=== PATIENT | female | born 1965 | race Caucasian/White ===

== ENCOUNTER 2019-08-15 17:26 | Emergency (ER) | payer OTHER ==
[2019-08-15 17:51] VITALS: BP 132/81; PULSE 81; TEMP 98; BMI 29.2
--- NOTE | 2019-08-15 19:00 | PDOC ---
*Physical Exam - Vital Signs Last Vital Signs Temp Pulse Resp BP Pulse Ox 98 F 81 18 132/81 99 08/15/19 17:41 08/15/19 17:41 08/15/19 17:41 08/15/19 17:41 08/15/19 17:41 Medical Decision Making - Medical Decision Making Pt upgraded to main ED from fast track, but left before being evaluated by ED provider. Discharge - Discharge Information Problems reviewed: Yes Clinical Impression/Diagnosis: Eloped from emergency department Condition: Unchanged/Unknown Disposition: ELOPED - Admission No - Follow up/Referral Referrals: Debbie German MD [Primary Care Provider] - - Patient Discharge Instructions - Post Discharge Activity
== END 2019-08-15 18:50 | disposition left against medical advice (07) ==
LOC: JER 17:26
DX: Z53.21 Procedure and treatment not carried out due to patient leaving prior to being seen by health care provider (principal)
CPT/HCPCS: 99281-25